=== PATIENT | female | born 1985 | race Caucasian/White ===

== ENCOUNTER 2016-09-24 15:36 | Emergency (ER) | payer MEDICAID ==
[~2016-09-24] VITALS: Ht 157.5 cm; Wt 52.2 kg
[2016-09-24 15:43] VITALS: BP 104/66
== END 2016-09-24 17:54 | disposition home or self-care (01) ==
LOC: ER 15:40
DX: S91.312A Laceration without foreign body, left foot, initial encounter (principal); Z88.1 Allergy status to other antibiotic agents; W45.8XXA Other foreign body or object entering through skin, initial encounter; Y93.89 Activity, other specified; Y92.89 Other specified places as the place of occurrence of the external cause; Y99.8 Other external cause status
CPT/HCPCS: 12001